=== PATIENT | male | born 1995 | race Caucasian/White ===

== ENCOUNTER 2018-05-08 19:39 | Emergency (ER) | payer MEDICAID, OTHER ==
[~2018-05-08] VITALS: Ht 177.8 cm; Wt 63.6 kg
[2018-05-08] MEDS ORDERED: HYDROcodone/acetaminophen 5mg/325mg tablet PO ONE (21:25)
[2018-05-08] MEDS ORDERED: PENI250T2 PO (21:26)
[2018-05-08] MEDS ORDERED: NAPR-56 PO (21:26)
--- NOTE | 2018-05-08 21:45 | NUR ---
PATIENT STATES THAT HE HAS TAKEN NORCO BEFORE; HIS MOTHER IS WITH HIM AND IS DRIVING
[2018-05-08 21:46] VITALS: BP 121/65
== END 2018-05-08 21:49 | disposition home or self-care (01) ==
LOC: ER 19:40
DX: K08.89 Other specified disorders of teeth and supporting structures (principal); Z79.899 Other long term (current) drug therapy
CPT/HCPCS: 99283